=== PATIENT | male | born 1960 | race Caucasian/White ===

== ENCOUNTER → 2018-12-19 06:55 | Outpatient (CLI) | payer OTHER, SELFPAY ==
[2018-12-19 09:17] LABS: Thyroid Stimulating Hormone 1.36 uIU/mL (0.47-4.68)
== END ==
PROVIDERS: Visit Provider Internal Medicine
DX: E03.9 Hypothyroidism, unspecified (principal)
CPT/HCPCS: 36415; 84443

== ENCOUNTER → 2019-11-05 07:02 | Outpatient (CLI) | payer OTHER, SELFPAY ==
[2019-11-05 08:16] LABS: Aspartate Aminotransferase 30 IU/L (17-59); BUN Creatinine Ratio 15.6 (6-22); Blood Urea Nitrogen 14 mg/dL (9-20); Calcium 9.3 mg/dL (8.4-10.2); Carbon Dioxide 26 mmol/L (22-32); Chloride 101 mmol/L (98-107); Cholesterol 190 mg/dL (140-199); Estimated Glomerular Filt Rate > 60.0 mL/min (>60); Glucose 96 mg/dL (70-100); HDL Cholesterol 35 mg/dL (40-60); HEMOLYSIS < 15 (0-50); LDL Cholesterol Calculated 122 mg/dL (<100); Potassium 3.6 mmol/L (3.4-5.1); Sodium 137 mmol/L (137-145); Triglycerides 165 mg/dL (35-150); Uric Acid 6.9 mg/dL (3.5-8.5)
[2019-11-05 08:47] LABS: TSH w/ Reflex to FT4 0.16 uIU/mL (0.47-4.68)
[2019-11-05 09:23] LABS: Free T4, Direct Thyroxine 1.71 ng/dL (0.78-2.19)
[2019-11-08 17:00] LABS: PSA, Total 0.8 ng/mL (< 4.1)
== END ==
PROVIDERS: PCP Internal Medicine; Visit Provider Internal Medicine
DX: E78.2 Mixed hyperlipidemia (principal); E03.9 Hypothyroidism, unspecified; N40.0 Benign prostatic hyperplasia without lower urinary tract symptoms; M10.9 Gout, unspecified; E29.1 Testicular hypofunction
CPT/HCPCS: 36415; 80048; 80061; 84153; 84154; 84403; 84439; 84443; 84450; 84550

== ENCOUNTER → 2019-12-03 11:05 | Outpatient (CLI) | payer OTHER, SELFPAY ==
--- NOTE | 2019-12-03 | DI.RAD.S_ITS ---
PROCEDURE: XR CHEST 2V INDICATIONS: Acute bronchitis TECHNIQUE: 2 views of the chest were acquired. COMPARISON: None. FINDINGS: Surgical changes and devices: None. Lungs and pleura: Lungs are clear. No pleural effusions or pneumothorax. Mediastinum: Mediastinal contours are normal. Heart size is normal. Bones and chest wall: No suspicious bony abnormalities. Soft tissues appear unremarkable. IMPRESSION: No acute pulmonary process. Dictated by: Abby Sullivan M.D. on 12/03/2019 at 15:29 Approved by: Abby Sullivan M.D. on 12/03/2019 at 15:29
== END ==
PROVIDERS: PCP Internal Medicine; Referring Provider Internal Medicine; Visit Provider Internal Medicine
DX: J20.9 Acute bronchitis, unspecified (principal)
CPT/HCPCS: 71046

== ENCOUNTER → 2020-05-13 07:01 | Outpatient (CLI) | payer OTHER, SELFPAY ==
[2020-05-13 09:06] LABS: Thyroid Stimulating Hormone 3.11 uIU/mL (0.47-4.68)
== END ==
PROVIDERS: PCP Internal Medicine; Referring Provider Internal Medicine; Visit Provider Internal Medicine
DX: E03.9 Hypothyroidism, unspecified (principal)
CPT/HCPCS: 36415; 84443

== ENCOUNTER → 2020-11-12 07:45 | Outpatient (CLI) | payer OTHER, SELFPAY ==
[2020-11-12 08:32] LABS: Aspartate Aminotransferase 24 IU/L (17-59); BUN Creatinine Ratio 17.5 (6-22); Blood Urea Nitrogen 17 mg/dL (9-20); Calcium 9.6 mg/dL (8.4-10.2); Carbon Dioxide 28 mmol/L (22-32); Chloride 105 mmol/L (98-107); Cholesterol 217 mg/dL (140-199); Estimated Glomerular Filt Rate > 60.0 mL/min (>60); Glucose 98 mg/dL (70-100); HDL Cholesterol 43 mg/dL (40-60); HEMOLYSIS < 15 (0-50); LDL Cholesterol Calculated 133 mg/dL (<100); Sodium 138 mmol/L (137-145); Triglycerides 206 mg/dL (35-150); Uric Acid 6.7 mg/dL (3.5-8.5)
[2020-11-12 09:02] LABS: Testosterone 354 ng/dL (71.8-623)
[2020-11-13 08:08] LABS: PSA, Total 1.5 ng/mL (0.0-4.0)
== END ==
PROVIDERS: PCP Internal Medicine; Referring Provider Internal Medicine; Visit Provider Internal Medicine
DX: E03.9 Hypothyroidism, unspecified (principal); E78.2 Mixed hyperlipidemia; M10.9 Gout, unspecified
CPT/HCPCS: 80048; 80061; 84153; 84154; 84403; 84439; 84443; 84450; 84550

== ENCOUNTER → 2021-09-10 07:03 | Outpatient (CLI) | payer OTHER, SELFPAY ==
[2021-09-10 09:27] LABS: Aspartate Aminotransferase 22 IU/L (17-59); BUN Creatinine Ratio 17.6 (6-22); Blood Urea Nitrogen 16 mg/dL (9-20); Calcium 9.6 mg/dL (8.4-10.2); Carbon Dioxide 27 mmol/L (22-32); Chloride 104 mmol/L (98-107); Cholesterol 193 mg/dL (140-199); Estimated Glomerular Filt Rate > 60.0 mL/min (>60); Glucose 105 mg/dL (80-110); HDL Cholesterol 41 mg/dL (40-60); HEMOLYSIS < 15 (0-50); LDL Cholesterol Calculated 127 mg/dL (<100); Potassium 4.6 mmol/L (3.4-5.1); Sodium 139 mmol/L (137-145); Triglycerides 125 mg/dL (35-150); Uric Acid 6.6 mg/dL (3.5-8.5)
[2021-09-10 09:56] LABS: TSH w/ Reflex to FT4 0.02 uIU/mL (0.47-4.68)
[2021-09-10 11:14] LABS: Free T4, Direct Thyroxine 1.57 ng/dL (0.78-2.19)
[2021-09-11 09:03] LABS: PSA Free % 35.6 % (.); PSA, Total 1.6 ng/mL (0.0-4.0)
== END ==
PROVIDERS: PCP Internal Medicine; Referring Provider Internal Medicine; Visit Provider Internal Medicine
DX: Z00.00 Encounter for general adult medical examination without abnormal findings (principal); E78.2 Mixed hyperlipidemia; E03.9 Hypothyroidism, unspecified; M10.9 Gout, unspecified
CPT/HCPCS: 36415; 80048; 80061; 84153; 84154; 84439; 84443; 84450; 84550

== ENCOUNTER → 2022-09-06 09:09 | Outpatient (CLI) | payer OTHER, SELFPAY ==
[2022-09-06 10:19] LABS: Hematocrit 43.6 % (41-53); Hemoglobin 14.9 g/dL (13.5-17.5); Mean Corpuscular HGB Conc 34.2 % (30-36); Mean Corpuscular Hemoglobin 30.6 PG (26-34); Mean Corpuscular Volume 89.6 fL (80-100); Platelet Count 213 X10^3/uL (150-400); Red Blood Cell Count 4.87 X10^6/uL (4.5-5.9); Red Cell Distribution Width 13.2 % (11.6-14.8); White Blood Cell Count 4.6 X10^3/uL (4.5-11.0)
[2022-09-06 10:30] LABS: Alanine Aminotransferase 24 IU/L (<50); Albumin 4.6 g/dL (3.5-5.0); Albumin Globulin Ratio 1.7 (1.0-2.8); Alkaline Phosphatase 50 U/L (38-126); Aspartate Aminotransferase 25 IU/L (17-59); BUN Creatinine Ratio 13.5 (6-22); Bilirubin Total 0.9 mg/dL (0.2-1.3); Blood Urea Nitrogen 13 mg/dL (9-20); Calcium 9.5 mg/dL (8.4-10.2); Carbon Dioxide 28 mmol/L (22-32); Chloride 97 mmol/L (98-107); Cholesterol 231 mg/dL (140-199); Estimated Glomerular Filt Rate > 60 mL/min (>60); Globulin 2.7 g/dL (1.7-4.1); Glucose 112 mg/dL (80-110); HDL Cholesterol 49 mg/dL (40-60); HEMOLYSIS < 15 (0-50); LDL Cholesterol Calculated 160 mg/dL (<100); Potassium 4.4 mmol/L (3.4-5.1); Sodium 136 mmol/L (137-145); Total Protein 7.3 g/dL (6.3-8.2); Triglycerides 111 mg/dL (35-150)
[2022-09-06 11:01] LABS: Prostate Specific Antigen Scrn 2.25 ng/mL (0.1-4.0)
[2022-09-06 11:03] LABS: TSH w/ Reflex to FT4 0.84 uIU/mL (0.47-4.68)
== END ==
PROVIDERS: PCP Internal Medicine; Referring Provider Internal Medicine; Visit Provider Internal Medicine
DX: Z00.00 Encounter for general adult medical examination without abnormal findings (principal); Z12.5 Encounter for screening for malignant neoplasm of prostate; R53.83 Other fatigue; E78.2 Mixed hyperlipidemia; E03.9 Hypothyroidism, unspecified
CPT/HCPCS: 36415; 80053; 80061; 84443; 85027; G0103

== ENCOUNTER → 2022-09-09 14:45 | Outpatient (CLI) | payer OTHER, SELFPAY ==
[2022-09-13 11:28] LABS: Cholesterol, Total 236 mg/dL (100-199); HDL-Cholesterol 52 mg/dL (>39); HDL-Particle (Total) 31.2 umol/L (>=30.5); LDL Particle 2028 nmol/L (<1000); LDL Size 21.2 nm (>20.5); LDL-Cholsterol 167 mg/dL (0-99); LP-IR Score 59 (<=45); Small LDL- Particle 791 nmol/L (<=527); Triglycerides 98 mg/dL (0-149)
== END ==
PROVIDERS: PCP Internal Medicine; Referring Provider Internal Medicine; Visit Provider Internal Medicine
DX: E78.2 Mixed hyperlipidemia (principal)
CPT/HCPCS: 36415; 80061; 83704

== ENCOUNTER → 2023-09-10 10:06 | Outpatient (CLI) | payer OTHER, SELFPAY ==
[2023-09-10 11:21] LABS: Influenza A - CEPHEID Flu A NEGATIVE (NEGATIVE); Influenza B - CEPHEID Flu B NEGATIVE (NEGATIVE); Respiratory Syncytial Virus Negative (Negative)
[2023-09-10 11:33] LABS: COVID-19 CEPHEID 4-PLEX PCR Negative (Negative)
== END ==
PROVIDERS: PCP Internal Medicine; Visit Provider Registered Nurse
DX: J02.9 Acute pharyngitis, unspecified (principal)
CPT/HCPCS: 0241U

== ENCOUNTER → 2024-01-02 06:40 | Outpatient (CLI) | payer OTHER, SELFPAY ==
[2024-01-02 07:42] LABS: Add Manual Diff / Slide Review NO; Basophils Absolute Auto 0 /uL (0-100); Basophils Percent Auto 0.8 % (0-2); Eosinophils Absolute Auto 0 /uL (0-450); Eosinophils Percent Auto 0.9 % (2-4); Hematocrit 43.5 % (41-53); Hemoglobin 14.7 g/dL (13.5-17.5); Lymphocytes Absolute Auto 1600 /uL (1100-4500); Mean Corpuscular HGB Conc 33.8 % (30-36); Mean Corpuscular Hemoglobin 30.2 PG (26-34); Mean Corpuscular Volume 89.6 fL (80-100); Monocytes Absolute Auto 400 /uL (0-900); Monocytes Percent Auto 8.8 % (3-14); Neutrophils Absolute Auto 2400 /uL (1500-7000); Neutrophils Percent Auto 53.5 % (50-75); Platelet Count 214 X10^3/uL (150-400); Red Blood Cell Count 4.86 X10^6/uL (4.5-5.9); Red Cell Distribution Width 13.8 % (11.6-14.8); White Blood Cell Count 4.4 X10^3/uL (4.5-11.0)
[2024-01-02 08:00] LABS: Alanine Aminotransferase 21 IU/L (<50); Albumin 4.3 g/dL (3.5-5.0); Albumin Globulin Ratio 1.7 (1.0-2.8); Alkaline Phosphatase 49 U/L (38-126); Aspartate Aminotransferase 26 IU/L (17-59); BUN Creatinine Ratio 16.7 (6-22); Bilirubin Total 1.2 mg/dL (0.2-1.3); Blood Urea Nitrogen 15 mg/dL (9-20); Calcium 9.6 mg/dL (8.4-10.2); Carbon Dioxide 28 mmol/L (22-32); Chloride 106 mmol/L (98-107); Cholesterol 209 mg/dL (140-199); Estimated Glomerular Filt Rate > 60 mL/min (>60); Globulin 2.5 g/dL (1.7-4.1); Glucose 98 mg/dL (80-110); HDL Cholesterol 49 mg/dL (40-60); HEMOLYSIS < 15 (0-50); LDL Cholesterol Calculated 132 mg/dL (<100); Potassium 4.4 mmol/L (3.4-5.1); Sodium 140 mmol/L (137-145); Total Protein 6.8 g/dL (6.3-8.2); Triglycerides 140 mg/dL (35-150)
[2024-01-02 08:31] LABS: Thyroid Stimulating Hormone 0.124 uIU/mL (0.47-4.68)
[2024-01-02 08:32] LABS: Prostate Specific Antigen Scrn 2.28 ng/mL (0.1-4.0)
== END ==
LOC: LAB 06:41
PROVIDERS: PCP Internal Medicine; Referring Provider Internal Medicine; Visit Provider Internal Medicine
DX: Z12.5 Encounter for screening for malignant neoplasm of prostate (principal); E78.2 Mixed hyperlipidemia; E03.9 Hypothyroidism, unspecified; M1A.9XX0 Chronic gout, unspecified, without tophus (tophi); Z79.899 Other long term (current) drug therapy
CPT/HCPCS: 36415; 80053; 80061; 84443; 84550; 85025; G0103

== ENCOUNTER → 2024-03-21 14:28 | Outpatient (CLI) | payer OTHER, SELFPAY ==
[2024-03-21 16:26] LABS: Aspartate Aminotransferase 27 IU/L (17-59); Cholesterol 143 mg/dL (140-199); HDL Cholesterol 54 mg/dL (40-60); LDL Cholesterol Calculated 70 mg/dL (<100); Triglycerides 94 mg/dL (35-150)
[2024-03-21 16:51] LABS: TSH w/ Reflex to FT4 0.13 uIU/mL (0.47-4.68)
[2024-03-21 17:29] LABS: Free T4, Direct Thyroxine 1.48 ng/dL (0.78-2.19)
== END ==
PROVIDERS: PCP Internal Medicine; Referring Provider Internal Medicine; Visit Provider Internal Medicine
DX: E03.9 Hypothyroidism, unspecified (principal); E78.2 Mixed hyperlipidemia
CPT/HCPCS: 36415; 80061; 84439; 84443; 84450

== ENCOUNTER → 2025-03-06 10:41 | Outpatient (CLI) | payer OTHER, SELFPAY ==
[2025-03-06 11:42] LABS: Aspartate Aminotransferase 29 IU/L (17-59); BUN Creatinine Ratio 17.9 (6-22); Blood Urea Nitrogen 17 mg/dL (9-20); Calcium 9.6 mg/dL (8.4-10.2); Carbon Dioxide 28 mmol/L (22-32); Chloride 102 mmol/L (98-107); Cholesterol 236 mg/dL (140-199); Estimated Glomerular Filt Rate > 60 mL/min (>60); Glucose 98 mg/dL (70-99); HDL Cholesterol 51 mg/dL (40-60); HEMOLYSIS < 15 (0-50); LDL Cholesterol Calculated 154 mg/dL (<100); Potassium 4.4 mmol/L (3.4-5.1); Sodium 138 mmol/L (137-145); Triglycerides 155 mg/dL (35-150); Uric Acid 6.3 mg/dL (3.5-8.5)
[2025-03-06 12:11] LABS: Prostate Specific Antigen Scrn 3.08 ng/mL (0.1-4.0); TSH w/ Reflex to FT4 0.77 uIU/mL (0.47-4.68)
== END ==
PROVIDERS: PCP Internal Medicine; Referring Provider Internal Medicine; Visit Provider Internal Medicine
DX: Z12.5 Encounter for screening for malignant neoplasm of prostate (principal); E03.9 Hypothyroidism, unspecified; E78.2 Mixed hyperlipidemia; M10.9 Gout, unspecified
CPT/HCPCS: 36415; 80048; 80061; 84443; 84450; 84550; G0103

== ENCOUNTER → 2025-06-11 11:01 | Outpatient (CLI) | payer OTHER, SELFPAY ==
--- NOTE | 2025-06-11 11:04 | DI.RAD.S_ITS ---
PROCEDURE: XR ANKLE RT MIN 3V INDICATIONS: Rule out right ankle fracture/avulsion TECHNIQUE: 3 views of the ankle were acquired. COMPARISON: None. FINDINGS: Bones: Age indeterminate fracture involving lateral periphery of distal tibia is seen with minimal diastasis at fracture site. Tiny calcifications are noted adjacent to tip of medial and lateral malleoli suggestive of age indeterminate avulsion injury. Ankle mortise is normally aligned. No suspicious bony lesions. Soft tissues: Significant lateral ankle soft tissue swelling is seen. IMPRESSION: Age indeterminate avulsion injury involving tip of medial and lateral malleoli. Significant lateral ankle soft tissue swelling. Age indeterminate vertical fracture through lateral periphery of distal tibia, suggest clinical correlation. Dictated by: Morgan Jamison M.D. on 06/11/2025 at 12:48 Approved by: Morgan Jamison M.D. on 06/11/2025 at 12:49
== END ==
PROVIDERS: PCP Internal Medicine; Referring Provider Internal Medicine; Visit Provider Chiropractor
DX: S93.401A Sprain of unspecified ligament of right ankle, initial encounter (principal); S82.841A Displaced bimalleolar fracture of right lower leg, initial encounter for closed fracture; R60.0 Localized edema; X58.XXXA Exposure to other specified factors, initial encounter
CPT/HCPCS: 73610